=== PATIENT | female | born 1980 | race Caucasian/White ===

== ENCOUNTER 2016-07-31 15:58 | Emergency (ER) | payer OTHER ==
--- NOTE | ~2016-07-31 | CR72 ---
[facility] A Service of [facility] RADIOLOGY TEXT RESULTS PATIENT: RUDDY BRIGHT LOCATION: [facility] : 80 UNIT #: [id number] AGE: [address]: Mac Neal DO SEX: F ORDER DR: [id number] [facility] [address] [place], [place] [address] [id number] E MR#: [id number] Acc #: [id number] NAME: RUDDY BRIGHT : 1980 SEX: F STUDY DATE/TIME: 07/31/2016 16:03 UNIT: [facility] ROOM: STUDY DESCRIPTION: CR Chest Single View Portable Attending Physician: Mac Neal D.O. Ordering Physician: Mac Neal D.O. Primary Care Physician: Primary Care Physician No MEDICAL IMAGING REPORT This report is preliminary unless electronic signature is present EXAM Portable chest HISTORY Shortness of air, overdose, 07/31/16 FINDINGS A single AP portable view of the chest shows both lungs to be clear. The heart is normal in size. The mediastinal contour is normal. No significant bone abnormalities are seen. IMPRESSION Normal portable chest. Dictated by... Claudia Bruno M.D. THIS IS AN ELECTRONICALLY VERIFIED REPORT Claudia Bruno M.D. at 08/01/2016 10:05 AM [place] TD: 08/01/2016 08:09 JOB #: [id number] MEDICAL IMAGING REPORT Page 1 of 1 COPY
[~2016-07-31 15:58] MED LIST: BACITRACIN30 GM TOP; PREDNISONE PO; TAGAMET PO
== END 2016-07-31 18:10 | disposition home or self-care (01) ==
LOC: CED 15:58
DX: T40.1X1A Poisoning by heroin, accidental (unintentional), initial encounter (principal); F31.9 Bipolar disorder, unspecified; B19.20 Unspecified viral hepatitis C without hepatic coma; Y92.9 Unspecified place or not applicable
CPT/HCPCS: 71010; 99283